=== PATIENT | female | born 1990 | race American Indian/Alaskan Native ===

== ENCOUNTER 2017-08-13 06:23 | Day surgery (SDC) | payer OTHER ==
[2017-07-03 09:38] VITALS: BMI 34.2
[2017-08-13] MEDS ORDERED: Morphine 10 mg/5 ml Oral Soln PO PRN (08:11)
[2017-08-13] MEDS ORDERED: Dextrose 5%/0.45% NS 1,000 ML IV SCH (08:15)
[2017-08-13] MEDS ORDERED: Propofol 10 mg/ml Inj (20 ML) ONE (08:28)
[2017-08-13] MEDS ORDERED: Midazolam 2 MG/2 ML VIAL ONE (08:28)
[2017-08-13] MEDS ORDERED: Rocuronium 10 mg/ml (5 ml) ONE (08:30)
[2017-08-13] MEDS ORDERED: Succinylcholine Chloride 20 mg/ml Syr (5 ml) IV ONE (08:30)
[2017-08-13] MEDS: ceFAZolin 1 gm in NS 1 GM/100 ML BAG IVPB ONE ×2 (08:38→08:45)
[2017-08-13] MEDS ORDERED: Morphine 4 MG/ML VIAL ONE (09:18)
[2017-08-13] MEDS ORDERED: HYDROmorphone 0.5 mg/0.5 ml ISec IVP PRN (09:24)
[2017-08-13] MEDS ORDERED: HYDROmorphone 0.5 mg/0.5 ml ISec ONE (09:30)
[2017-08-13] MEDS ORDERED: Lactated Ringer's 500 ML IV ONE (10:00)
[2017-08-13 10:34] VITALS: O2SAT 100
[2017-08-13 11:55] VITALS: BP 117/69; PULSE 72; RESP 18; TEMP 97.9
--- NOTE | 2017-08-13 20:10 | OP ---
PROCEDURE DATE: 08/13/2017 PREOPERATIVE DIAGNOSIS: Chronic tonsillitis. POSTOPERATIVE DIAGNOSIS: Chronic tonsillitis. PROCEDURE: Tonsillectomy. SURGEON: Mario Lara MD SIGNIFICANT FINDINGS: Findings of infected tonsils. DESCRIPTION OF PROCEDURE: The patient was brought into the room, placed in a supine position. Anesthesia was initiated through an ET tube. The patient was draped in the usual manner. 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 The right tonsil was grabbed and pulled medially. An incision was made in the anterior tonsillar pillar using a plasma knife. Dissections were done between tonsil and tonsillar fossa using the plasma knife until the tonsil was removed. Bleeding was controlled using plasma knife. Next, the other tonsil was grabbed and pulled medially. Incision was made in the anterior tonsillar pillar using plasma knife. Dissections were done between tonsil and tonsillar fossa using the plasma knife until the tonsil was removed. Bleeding was controlled using plasma knife. Both tonsillar beds were rubbed vigorously with a plasma knife wand. No bleeding was noted. Mouth gag was let down for 30 seconds, put back up, no bleeding was noted. Mouth gag was then taken down and removed. The patient was taken off anesthesia and taken to the recovery room in a stable manner. Mario Lara MD
== END 2017-08-13 11:17 | disposition home or self-care (01) ==
LOC: C.SDS 06:23
PROVIDERS: ATTEND Otolaryngology
DX: J35.01 Chronic tonsillitis (principal)
CPT/HCPCS: 42826; 88304; J0690; J1100; J1170; J2250; J2270; J2704; J3010; J7120